=== PATIENT | male | born 1985 | race Caucasian/White ===

== ENCOUNTER 2019-08-25 18:10 | Emergency (ER) | payer SELFPAY ==
[2019-08-25] MEDS ORDERED: Aspirin 81 MG Tab.Chew PO ONE (18:33)
--- NOTE | 2019-08-25 19:23 | CR ---
Chest: PA and lateral views of the chest were obtained. Comparison: No previous chest imaging. Heart size and mediastinum are normal. Lungs are clear with no acute parenchymal change. Bony structures are unremarkable. Impression: 1. Nothing acute is seen on 2 view chest x-ray. Diagnostic code #1 This report was dictated in MDT
[2019-08-25] MEDS ORDERED: Ketorolac 30 MG/ML SDV IVPUSH ONE (19:36)
[2019-08-25] MEDS ORDERED: Ketorolac 60 MG/2 ML SDV IM ONE (19:50)
--- NOTE | 2019-08-25 20:18 | EDM.PDOC ---
ED HPI GENERAL MEDICAL PROBLEM - General Chief Complaint: Chest Pain Stated Complaint: CHEST PAIN Time Seen by Provider: 08/25/19 18:31 Source of Information: Reports: Patient History Limitations: Reports: No Limitations - History of Present Illness INITIAL COMMENTS - FREE TEXT/NARRATIVE: Patient is a 34-year-old male who presents to the emergency department with complaints of midsternal chest discomfort with breathing or palpation. Onset of symptoms approximately 3 hours prior to coming to ER. Patient states that he was just walking into work when the symptoms began. He denies any shortness of breath or diaphoresis with the symptoms. Pain is localized to the mid sternum. He has no cardiac history. She has not taken any medications for pain. Left Upper Chest Pain Score (Numeric/FACES): 4 - Related Data Allergies Allergy/AdvReac Type Severity Reaction Status Date / Time No Known Allergies Allergy Verified 08/25/19 18:27 Home Meds: Home Meds Naproxen [Naprosyn] 500 mg PO Q12HR 5 Days #10 tab 08/25/19 [Rx] Past Medical History - Past Health History Medical/Surgical History: Denies Medical/Surgical History - Infectious Disease History Infectious Disease History: Reports: Chicken Pox Social & Family History - Family History Family Medical History: Noncontributory - Tobacco Use Smoking Status *Q: Current Every Day Smoker Years of Tobacco use: 10 Packs/Tins Daily: 0.5 - Caffeine Use Caffeine Use: Reports: Energy Drinks, Soda Other Caffeine Use: energy drinks rarely - Recreational Drug Use Recreational Drug Use: Yes Drug Use in Last 12 Months: No Recreational Drug Type: Reports: Marijuana/Hashish ED ROS GENERAL - Review of Systems Review Of Systems: See Below Constitutional: Reports: No Symptoms HEENT: Reports: No Symptoms Respiratory: Reports: No Symptoms. Denies: Shortness of Breath, Cough Cardiovascular: Reports: Chest Pain Endocrine: Reports: No Symptoms GI/Abdominal: Reports: No Symptoms : Reports: No Symptoms Musculoskeletal: Reports: No Symptoms Skin: Reports: No Symptoms Neurological: Reports: No Symptoms Psychiatric: Reports: No Symptoms Hematologic/Lymphatic: Reports: No Symptoms Immunologic: Reports: No Symptoms ED EXAM, GENERAL - Physical Exam Exam: See Below Exam Limited By: No Limitations General Appearance: Alert, WD/WN, No Apparent Distress Respiratory/Chest: No Respiratory Distress, Lungs Clear, Normal Breath Sounds, No Accessory Muscle Use, Other (Tenderness to palpation over the sternum.) Cardiovascular: Normal Peripheral Pulses, Regular Rate, Rhythm, No Edema, No Gallop, No JVD, No Murmur, No Rub Neurological: Alert, Oriented, CN II-XII Intact, Normal Cognition, Normal Gait, Normal Reflexes, No Motor/Sensory Deficits Psychiatric: Normal Affect, Normal Mood Skin Exam: Warm, Dry, Intact, Normal Color, No Rash EKG INTERPRETATION EKG Date: 08/25/19 Time: 18:25 Rhythm: NSR Rate (Beats/Min): 71 [place]: Normal P-Wave: Present QRS: Normal ST-T: Normal QT: Normal Comparison: NA - No Prior EKG EKG Interpretation Comments: Sinus rhythm at 71 Q waves V1 and near Q wave V2- Consider old anterior septal NV Early R wave transition-consider septal hypertrophy T wave inversion V1 and V2-nonspecific EKG interpreted by Dr. Rocio MD Course - Vital Signs Last Recorded V/S: Last Vital Signs Temp 96.8 F L 08/25/19 18:22 Pulse 70 08/25/19 18:22 Resp 20 08/25/19 18:22 BP 132/80 08/25/19 18:22 Pulse Ox 100 08/25/19 18:22 - Orders/Labs/Meds Orders: Active Orders 24 hr Category Date Time Status EKG 12 Lead [EKG Documentation Completion] [RC] ROUTINE Care 08/25/19 18:25 Active Labs: Laboratory Tests 08/25/19 08/25/19 08/25/19 Range/Units 18:45 18:45 18:45 WBC 9.37 H (4.23-9.07) K/mm3 RBC 4.64 (4.63-6.08) M/mm3 Hgb 13.9 (13.7-17.5) gm/dl Hct 41.6 (40.1-51.0) % MCV 89.7 (79.0-92.2) fl MCH 30.0 (25.7-32.2) pg MCHC 33.4 (32.2-35.5) g/dl RDW Std Deviation 40.7 (35.1-43.9) fL Plt Count 315 (163-337) K/mm3 MPV 9.7 (9.4-12.3) fl Neut % (Auto) 51.0 (34.0-67.9) % Lymph % (Auto) 35.2 (21.8-53.1) % Lyman % (Auto) 10.0 (5.3-12.2) % Eos % (Auto) 3.4 (0.8-7.0) Baso % (Auto) 0.2 (0.1-1.2) % Neut # (Auto) 4.77 (1.78-5.38) K/mm3 Lymph # (Auto) 3.30 (1.32-3.57) K/mm3 Lyman # (Auto) 0.94 H (0.30-0.82) K/mm3 Eos # (Auto) 0.32 (0.04-0.54) K/mm3 Baso # (Auto) 0.02 (0.01-0.08) K/mm3 D-Dimer, Quantitative 0.29 (0.19-0.50) mg/L Sodium 140 (136-145) mEq/L Potassium 4.0 (3.5-5.1) mEq/L Chloride 106 (98-107) mEq/L Carbon Dioxide 26 (21-32) mEq/L Anion Gap 12.0 (5-15) BUN 18 (7-18) mg/dL Creatinine 0.9 (0.7-1.3) mg/dL Est Cr Clr Drug Dosing 105.35 mL/min Estimated GFR (MDRD) > 60 (>60) mL/min BUN/Creatinine Ratio 20.0 H (14-18) Glucose 86 (74-106) mg/dL Calcium 9.1 (8.5-10.1) mg/dL Total Bilirubin 0.5 (0.2-1.0) mg/dL AST 16 (15-37) U/L ALT 22 (16-63) U/L Alkaline Phosphatase 66 (46-116) U/L Troponin I < 0.017 (0.00-0.056) ng/mL C-Reactive Protein 0.4 (<1.0) mg/dL Total Protein 7.1 (6.4-8.2) g/dl Albumin 4.1 (3.4-5.0) g/dl Globulin 3.0 gm/dL Albumin/Globulin Ratio 1.4 (1-2) Meds: Medications Discontinued Medications Generic Name Dose Route Start Last Admin Trade Name Freq PRN Reason Stop Dose Admin Aspirin 324 mg 08/25/19 18:33 08/25/19 18:36 Aspirin PO 08/25/19 18:34 324 mg ONETIME ONE Administration Ketorolac Tromethamine 30 mg 08/25/19 19:36 Toradol IVPUSH 08/25/19 19:37 ONETIME ONE Ketorolac Tromethamine 60 mg 08/25/19 19:50 08/25/19 19:54 Toradol IM 08/25/19 19:51 60 mg ONETIME ONE Administration - Re-Assessments/Exams Free Text/Narrative Re-Assessment/Exam: 08/25/19 20:18 Patient's work-up was found to be grossly unremarkable. D-dimer was normal, troponin was negative, EKG chest x-ray were was negative for any acute abnormalities. Patient is markedly tender to palpation directly over the sternum. Discussed with him that his pain is likely musculoskeletal in nature. We will give him an injection of Toradol in the ER and then send him home with prescription of Naprosyn for the next 5 days. Discharge instructions as documented. Departure - Departure Time of Disposition: 20:53 Disposition: Home, Self-Care 01 Condition: Good Clinical Impression: Atypical chest pain Prescriptions: Naproxen [Naprosyn] 500 mg PO Q12HR 5 Days #10 tab Instructions: Chest Wall Pain, [id number] Referrals: PCP,None [Primary Care Provider] - Forms: ED Department Discharge, ED Return to Work/School Form Additional Instructions: You were seen in the emergency department today for mid sternal chest pain which is worse with breathing and pressure on the chest. Work-up included blood work, chest x-ray, and EKG of your heart. This was all found to be normal. As we discussed, your pain is likely musculoskeletal in nature. While in the ER, you received a dose of Toradol which is an anti-inflammatory. A prescription for Naprosyn has been sent to [facility]. Take this medication as prescribed. You may also apply heat to the chest wall to help relieve the inflammation. If you experience any new or worsening symptoms, please not hesitate to return to the emergency department. Sepsis Event Note (ED) - Evaluation Sepsis Screening Result: No Definite Risk - Focused Exam Vital Signs: Vital Signs Temp Pulse Resp BP Pulse Ox 08/25/19 18:22 96.8 F L 70 20 132/80 100 - My Orders Last 24 Hours: My Active Orders 08/25/19 18:25 EKG 12 Lead [EKG Documentation Completion] [RC] ROUTINE - Assessment/Plan Last 24 Hours: My Active Orders 08/25/19 18:25 EKG 12 Lead [EKG Documentation Completion] [RC] ROUTINE
== END 2019-08-25 21:07 | disposition home or self-care (01) ==
LOC: JD.ED 18:10
DX: R07.89 Other chest pain (principal); R07.2 Precordial pain; F17.210 Nicotine dependence, cigarettes, uncomplicated
CPT/HCPCS: 36415; 71046; 80053; 84484; 85025; 85379; 86140; 93005; 96372; 99285; A9270; J1885; 93010; 99283

== ENCOUNTER 2022-03-02 16:06 | Emergency (ER) | payer BC | END 2022-03-02 18:30 | disposition home or self-care (01) | LOC: JD.ED 16:06 | DX: K08.89 Other specified disorders of teeth and supporting structures (principal); F17.210 Nicotine dependence, cigarettes, uncomplicated; Z88.0 Allergy status to penicillin | CPT/HCPCS: 99282 ==